=== PATIENT | male | born 1970 | race Hispanic/Latino ===

== ENCOUNTER 2017-09-08 21:52 | Emergency (ER) | payer SELFPAY ==
[2017-09-08 22:30] LABS: #Eosinphils 0.1 thou/uL (0.0-0.7); #Monocytes 0.6 thou/uL (0.11-0.59); #Neutrophils 6.5 thou/uL (1.40-6.50); %Eosinophils 1.2 % (0.0-10.0); %Lymphocytes 11.9 % (21.0-51.0); %Monocytes 7.4 % (0.0-10.0); %Neutrophils 79.6 % (42.0-75.0); Hemoglobin 14.1 g/dL (14.0-18.0); Mean Corpuscular HGB CONC 34.1 g/dL (32.0-36.0); Mean Corpuscular Volume 87.9 fL (78.0-98.0); Mean Platelet Volume 6.7 fL (7.4-10.4); Platelet Count 132 thou/uL (130-400); RBC Distribution Width 12.3 % (11.5-14.5); Red Blood Cell (RBC) Count 4.71 mill/uL (4.70-6.10); White Blood Cell (WBC) Count 8.1 thou/uL (4.8-10.8)
[2017-09-08 22:48] LABS: ALT (SGPT) 35 U/L (8-55); AST (SGOT) 57 U/L (5-34); Albumin 3.9 g/dL (3.5-5.0); Alkaline Phosphatase 94 U/L (40-150); Anion Gap 16 mmol/L (10-20); BUN (Urea Nitrogen) 11 mg/dL (8.9-20.6); Bilirubin, Total 0.8 mg/dL (0.2-1.2); Calc. Creatinine Clearance 0 mL/min (70-130); Calcium 8.9 mg/dL (7.8-10.44); Carbon Dioxide 21 mmol/L (22-29); Chloride 96 mmol/L (98-107); Estimated GFR-MDRD Greater than 90; Globulin 4.3 g/dL (2.4-3.5); Glucose 124 mg/dL (70-105); Potassium 3.7 mmol/L (3.5-5.1); Protein, Total 8.2 g/dL (6.0-8.3); Sodium 129 mmol/L (136-145)
--- NOTE | 2017-09-08 22:54 | RAD ---
RADIOGRAPH CHEST 1 VIEW: 09/08/17 HISTORY: 46-year-old male with acute chest pain for two days. FINDINGS: There are no air space densities, pulmonary edema, pneumothorax, or cardiomegaly. The lateral costop hrenic angles are sharp. IMPRESSION: No acute cardiopulmonary findings. david [] POS: JEET
[2017-09-08 23:14] LABS: CKMB 1.2 ng/mL (0-6.6); Troponin I Less than 0.010 ng/mL (< 0.028)
[2017-09-08] MEDS ORDERED: Ondansetron ODT 4 MG TAB ONE (23:22)
[2017-09-08 23:44] LABS: Acetaminophen Less than 6.0 mcg/mL (10.0-30.0); Alcohol 74 mg/dL (Less than 10); Salicylate Less than 8.0 mg/dL (15.0-30.0)
[2017-09-09] MEDS ORDERED: cloNIDine 0.1mg/24 Hour PATCH TD SCH (01:15)
[2017-09-09] MEDS ORDERED: Ketorolac Tromethamine 30 MG/ML VIAL ONE (01:54)
--- NOTE | 2017-09-10 13:31 | EKG ---
Test Reason : Blood Pressure : / mmHG Vent. Rate : 109 BPM Atrial Rate : 109 BPM P-R Int : 138 ms QRS Dur : 084 ms QT Int : 326 ms P-R-T Axes : 028 032 003 degrees QTc Int : 439 ms Sinus tachycardia Otherwise normal ECG Confirmed by KRISTEN STEPHENS ([id number]), acquisitions editor TUYET BEY ([id number]) on 09/10/2017 1:31:19 PM Referred By: Confirmed By:KRISTEN STEPHENS
== END 2017-09-09 02:05 | disposition home or self-care (01) ==
LOC: ERS 21:52
DX: F11.23 Opioid dependence with withdrawal (principal); F17.210 Nicotine dependence, cigarettes, uncomplicated
CPT/HCPCS: 71045; 80053; 80307; 82553; 84484; 85025; 93005; 96361; 96372; 96374; J1885; Q0162

== ENCOUNTER 2022-01-13 16:51 | Emergency (ER) | payer OTHER, SELFPAY ==
[~2022-01-13 16:51] MED LIST: Iopamidol-370 76% 500 ML 1 ML ONE
[2022-01-13 18:14] LABS: #Eosinphils 0.1 thou/uL (0.0-0.7); #Lymphocytes 1.2 thou/uL (1.20-3.40); #Monocytes 0.7 thou/uL (0.11-0.59); #Neutrophils 6.9 thou/uL (1.40-6.50); %Basophils 0.5 % (0.0-1.0); %Eosinophils 1.5 % (0.0-10.0); %Lymphocytes 13.5 % (21.0-51.0); %Monocytes 7.6 % (0.0-10.0); %Neutrophils 76.9 % (42.0-75.0); Mean Corpuscular HGB CONC 32.7 g/dL (32.0-36.0); Mean Corpuscular Hemoglobin 30.6 pg (27.0-31.0); Mean Corpuscular Volume 93.5 fl (78.0-98.0); Mean Platelet Volume 6.5 fL (7.4-10.4); Platelet Count 213 thou/uL (130-400); RBC Distribution Width 13.5 % (11.5-14.5); Red Blood Cell (RBC) Count 5.22 mill/uL (4.70-6.10); White Blood Cell (WBC) Count 8.9 thou/uL (4.8-10.8)
[2022-01-13 18:22] LABS: INR-International Normal Ratio 1.1; PTT 35.1 sec (22.9-36.1); Prothrombin Time 14.5 sec (12.0-14.7)
[2022-01-13 18:24] LABS: ALT (SGPT) 22 U/L (8-55); AST (SGOT) 34 U/L (5-34); Albumin 4.6 g/dL (3.5-5.0); Alkaline Phosphatase 94 U/L (40-110); Anion Gap 11 mmol/L (10-20); BUN (Urea Nitrogen) 5 mg/dL (8.4-25.7); Calc. Creatinine Clearance 0 mL/min (70-130); Calcium 9.6 mg/dL (7.8-10.44); Carbon Dioxide 30 mmol/L (22-29); Chloride 98 mmol/L (98-107); Estimated GFR 102; Globulin 3.6 g/dL (2.4-3.5); Glucose 88 mg/dL (70-105); Lipase 30 U/L (8-78); Potassium 4.2 mmol/L (3.5-5.1); Protein, Total 8.2 g/dL (6.0-8.3); Sodium 135 mmol/L (136-145)
[2022-01-13] MEDS ORDERED: Ketorolac Tromethamine 30 MG/ML VIAL ONE (18:55)
[2022-01-13 19:05] LABS: Bacteria/HPF None Seen HPF (None Seen); Bilirubin Negative (Negative); Blood, Urine 1+ (Negative); Clarity Clear (Clear); Glucose, Urine (Dipstick) Normal (Negative); Ketone, Urine Negative (Negative); Leukocyte 75 Leu/uL (Negative); Nitrite Negative (Negative); Protein, Urine (Dipstick) 10 mg/dL (Neg-Trace); Specific Gravity, Urine 1.018 (1.002-1.036); Squamous Epithelial 0-3 HPF (0-3); Urobilinogen 6 mg/dL (Less than 2)
[2022-01-13 19:06] LABS: Sperm/HPF Rare HPF (None Seen)
== END 2022-01-13 21:41 | disposition home or self-care (01) ==
LOC: ERS 16:51
DX: N39.0 Urinary tract infection, site not specified (principal); Z87.891 Personal history of nicotine dependence
CPT/HCPCS: 36415; 74177; 80053; 81003; 81015; 83690; 84484; 85025; 85610; 85730; 87086; 93005; 96372; J1885; Q9967

== ENCOUNTER 2022-04-17 14:24 | Emergency (ER) | payer SELFPAY ==
[2022-04-17] MEDS ORDERED: Ibuprofen 200 MG TAB ONE (14:53)
[2022-04-17] MEDS ORDERED: HYDROcodone/Acetaminophen 5/325 mg Tablet ONE (14:53)
== END 2022-04-17 15:52 | disposition home or self-care (01) ==
LOC: ERS 14:24
DX: L03.90 Cellulitis, unspecified (principal)
CPT/HCPCS: 99283

== ENCOUNTER 2023-02-14 13:22 | Inpatient (IN) | payer SELFPAY ==
[~2023-02-14 13:22] MED LIST changes: -Iopamidol-370 76% 500 ML 1 ML ONE; +Iopamidol-370 76% 500 ML MDV (1 ML CHARGE) ONE
[2023-02-14 14:36] LABS: #Eosinphils 0.1 thou/uL (0.0-0.7); #Monocytes 0.6 thou/uL (0.11-0.59); %Basophils 0.5 % (0.0-1.0); %Eosinophils 2.2 % (0.0-10.0); %Lymphocytes 14.4 % (21.0-51.0); %Monocytes 10.6 % (0.0-10.0); %Neutrophils 71.9 % (42.0-75.0); Hematocrit 43.8 % (42.0-52.0); Hemoglobin 15.3 g/dL (14.0-18.0); Mean Corpuscular HGB CONC 34.9 g/dL (32.0-36.0); Mean Corpuscular Hemoglobin 31.4 pg (27.0-31.0); Mean Corpuscular Volume 89.8 fl (78.0-98.0); Mean Platelet Volume 9.5 fL (7.4-10.4); Platelet Count 163 10x3/uL (130-400); RBC Distribution Width 12.3 % (11.5-14.5); Red Blood Cell (RBC) Count 4.88 mill/uL (4.70-6.10); White Blood Cell (WBC) Count 5.6 10x3/uL (4.8-10.8)
[2023-02-14 14:58] LABS: ALT (SGPT) 20 U/L (8-55); AST (SGOT) 40 U/L (5-34); Albumin 4.5 g/dL (3.5-5.0); Alkaline Phosphatase 78 U/L (40-110); Anion Gap 14 mmol/L (10-20); BUN (Urea Nitrogen) 4 mg/dL (8.4-25.7); Bilirubin, Total 1.1 mg/dL (0.2-1.2); Calc. Creatinine Clearance 0 mL/min (70-130); Calcium 9.4 mg/dL (7.8-10.44); Carbon Dioxide 25 mmol/L (22-29); Chloride 94 mmol/L (98-107); Estimated GFR 107; Globulin 3.4 g/dL (2.4-3.5); Glucose 129 mg/dL (70-105); Lipase 22 U/L (8-78); Potassium 3.2 mmol/L (3.5-5.1); Protein, Total 7.9 g/dL (6.0-8.3); Sodium 130 mmol/L (136-145)
[2023-02-14 15:50] LABS: Bacteria/HPF None Seen HPF (None Seen); Bilirubin Negative (Negative); Blood, Urine 1+ (Negative); CAUTI Indications for Culture Pelvic or flank pain; Clarity Clear (Clear); Glucose, Urine (Dipstick) Normal (Negative); Ketone, Urine Negative (Negative); Leukocyte Negative Leu/uL (Negative); Nitrite Negative (Negative); Protein, Urine (Dipstick) Negative (Neg-Trace); Specific Gravity, Urine 1.012 (1.002-1.036); Squamous Epithelial 0-3 HPF (0-3); Urobilinogen 3 mg/dL (Less than 2); WBC/HPF 0-3 HPF (0-3); pH, Urine 7.5 (5.0-9.0)
[2023-02-14 15:53] LABS: Urine Culture Reflex No No
[2023-02-14] MEDS ORDERED: Cefepime 2 GM VIAL ONE (16:36)
[2023-02-14] MEDS ORDERED: Morphine 4 MG/ML VIAL ONE ×2 (16:36→18:23)
[2023-02-14] MEDS ORDERED: Sodium Chloride 0.9% 100 ML ONE (16:36)
[2023-02-14] MEDS ORDERED: Vancomycin 1 GM/200 ML (FROZEN) BAG ONE (18:04)
[2023-02-14] MEDS ORDERED: fentaNYL 50 mcg/mL 1 mL Vial ONE (22:28)
[2023-02-14] MEDS ORDERED: Electrolyte Replacement Protocol 1 EACH FS PRN (23:45)
[2023-02-14] MEDS ORDERED: Ondansetron PF 4 MG/2 ML Vial IVP PRN (23:48)
[2023-02-14] MEDS ORDERED: Ondansetron ODT 4 MG TAB PO PRN ×2 (23:48→23:51)
[2023-02-14] MEDS ORDERED: Acetaminophen 325 MG TAB PO PRN (23:48)
[2023-02-14] MEDS ORDERED: Lorazepam 2 MG/ML VIAL IM PRN (23:51)
[2023-02-14] MEDS ORDERED: Lorazepam 1 MG TAB PO PRN (23:51)
[2023-02-15] MEDS ORDERED: LORazepam 2 MG/ML SYR.(CARPUJECT) ONE (00:30)
[2023-02-15 00:32] LABS: Magnesium 1.7 mg/dL (1.6-2.6); Phosphorus 2.8 mg/dL (2.3-4.7)
[2023-02-15] MEDS ORDERED: Magnesium 2 GM/50 ML(in water) 2 GM in Premix 1 BAG IVPB SCH (01:00)
[2023-02-15 01:23] LABS: Amphetamine Detected (NotDetected); Barbiturates Screen Not Detected (NotDetected); Benzodiazepine Screen Not Detected (NotDetected); Cocaine Metabolite Screen Detected (NotDetected); Methadone Not Detected (NotDetected); Methamphetamine Detected (NotDetected); Opiate Screen Not Detected (NotDetected); Oxycodone Screen Not Detected (NotDetected); Phencyclidine (PCP) Not Detected (NotDetected); THC/Cannabinoid Screen Not Detected (NotDetected); Tricyclic Screen Not Detected (NotDetected)
[2023-02-15] MEDS ORDERED: Dextrose 5%-Lactated Ringers 1,000 ML IV SCH (01:45)
[2023-02-15] MEDS ORDERED: Dexamethasone 10 MG/ML VIAL ONE ×2 (03:46→11:37)
[2023-02-15] MEDS ORDERED: Thiamine HCl 200 MG/2 ML VIAL ONE (03:47)
[2023-02-15 03:49] LABS: #Eosinphils 0.1 thou/uL (0.0-0.7); #Monocytes 0.7 thou/uL (0.11-0.59); #Neutrophils 4.6 thou/uL (1.40-6.50); %Basophils 0.4 % (0.0-1.0); %Eosinophils 1.9 % (0.0-10.0); %Lymphocytes 18.4 % (21.0-51.0); %Monocytes 10.5 % (0.0-10.0); %Neutrophils 68.5 % (42.0-75.0); Hematocrit 43.9 % (42.0-52.0); Hemoglobin 15.3 g/dL (14.0-18.0); Mean Corpuscular HGB CONC 34.9 g/dL (32.0-36.0); Mean Corpuscular Hemoglobin 31.3 pg (27.0-31.0); Mean Corpuscular Volume 89.8 fl (78.0-98.0); Mean Platelet Volume 9.6 fL (7.4-10.4); Platelet Count 148 10x3/uL (130-400); RBC Distribution Width 12.4 % (11.5-14.5); Red Blood Cell (RBC) Count 4.89 mill/uL (4.70-6.10); White Blood Cell (WBC) Count 6.8 10x3/uL (4.8-10.8)
[2023-02-15 04:06] LABS: ALT (SGPT) 19 U/L (8-55); AST (SGOT) 36 U/L (5-34); Alkaline Phosphatase 74 U/L (40-110); Anion Gap 14 mmol/L (10-20); BUN (Urea Nitrogen) 6 mg/dL (8.4-25.7); Bilirubin, Total 1.4 mg/dL (0.2-1.2); Calc. Creatinine Clearance 0 mL/min (70-130); Calcium 9.5 mg/dL (7.8-10.44); Carbon Dioxide 24 mmol/L (22-29); Chloride 103 mmol/L (98-107); Estimated GFR 109; Globulin 3.4 g/dL (2.4-3.5); Glucose 87 mg/dL (70-105); Potassium 3.8 mmol/L (3.5-5.1); Protein, Total 7.4 g/dL (6.0-8.3); Sodium 137 mmol/L (136-145)
[2023-02-15] MEDS: Dexamethasone 4 mg/ml Vial SLOW IVP SCH ×3 (04:08→15:18)
[2023-02-15] MEDS: Thiamine HCl 200 MG/2 ML VIAL SLOW IVP SCH ×2 (04:08→22:41)
[2023-02-15] MEDS ORDERED: Magnesium 2 GM/50 ML BAG (IN WATER) ONE (04:47)
[2023-02-15 05:30] VITALS: BMI 22.8
[2023-02-15] MEDS ORDERED: Vancomycin (BATCH) 1.25 GM in Premix 1 BAG IVPB SCH (06:00)
[2023-02-15] MEDS ORDERED: Cefepime 1 GM in Sodium Chloride 0.9% 100 ML IVPB SCH (09:00)
[2023-02-15] MEDS ORDERED: Vancomycin (BATCH) 1.5 GM in Premix 1 BAG IVPB SCH (09:00)
[2023-02-15] MEDS ORDERED: Magnevist 469MG/ML 20 ML VIAL ONE ×3 (09:54)
[2023-02-15] MEDS ORDERED: Multivit, Therapeutic 1 TAB ONE (11:37)
[2023-02-15] MEDS ORDERED: Cefepime 1 GM VIAL ONE (11:37)
[2023-02-15] MEDS ORDERED: Folic Acid 1 MG TAB ONE (11:37)
[2023-02-15] MEDS ORDERED: Sodium Chloride 0.9% 100 ML ONE (11:38)
[2023-02-15] MEDS ORDERED: Famotidine/PF 20 mg/2ml Vial ONE (11:38)
[2023-02-15] MEDS: Multivit, Therapeutic 1 TAB PO SCH (11:42)
[2023-02-15] MEDS: Famotidine/PF 20 mg/2ml Vial SLOW IVP SCH ×2 (11:42→21:20)
[2023-02-15] MEDS: Folic Acid 1 MG TAB PO SCH (11:42)
[2023-02-15] MEDS ORDERED: traMADol HCl 50 MG TAB ONE (11:45)
[2023-02-15] MEDS: traMADol HCl 50 MG TAB PO PRN ×2 (11:46→17:47)
[2023-02-15] MEDS: Famotidine 20 MG TAB PO SCH ×2 (11:55→21:20)
[2023-02-15] MEDS: Tamsulosin HCl 0.4 MG CAP PO SCH (12:39)
[2023-02-15] MEDS: Vancomycin 1 GM in Premix 1 BAG IVPB SCH ×2 (15:20→22:41)
[2023-02-15] MEDS ORDERED: Dexamethasone 4 mg/ml Vial SLOW IVP SCH (18:00)
[2023-02-15] MEDS ORDERED: Cefepime 2 GM in Sodium Chloride 0.9% 100 ML IVPB SCH (21:00)
[2023-02-15] MEDS ORDERED: Lorazepam 1 MG TAB PO PRN (23:51)
[2023-02-16] MEDS: traMADol HCl 50 MG TAB PO PRN ×3 (03:49→21:29)
[2023-02-16 05:26] LABS: Vancomycin, Trough 17.1 ug/mL
[2023-02-16] MEDS: Vancomycin 1 GM in Premix 1 BAG IVPB SCH ×3 (05:44→21:32)
[2023-02-16] MEDS: Tamsulosin HCl 0.4 MG CAP PO SCH (08:33)
[2023-02-16] MEDS: Multivit, Therapeutic 1 TAB PO SCH (08:33)
[2023-02-16] MEDS: Famotidine/PF 20 mg/2ml Vial SLOW IVP SCH ×2 (08:33→21:33)
[2023-02-16] MEDS: Famotidine 20 MG TAB PO SCH ×2 (08:33→21:29)
[2023-02-16] MEDS: Folic Acid 1 MG TAB PO SCH (08:33)
[2023-02-16] MEDS: Lorazepam 1 MG TAB PO SCH ×2 (12:32→17:52)
[2023-02-16] MEDS: Thiamine HCl 200 MG/2 ML VIAL SLOW IVP SCH (23:48)
[2023-02-16] MEDS ORDERED: Lorazepam 1 MG TAB PO PRN (23:51)
[2023-02-17 05:31] LABS: #Monocytes 0.5 thou/uL (0.11-0.59); %Basophils 0.1 % (0.0-1.0); %Eosinophils 0.3 % (0.0-10.0); %Lymphocytes 17.5 % (21.0-51.0); %Monocytes 7.4 % (0.0-10.0); %Neutrophils 74.4 % (42.0-75.0); Hematocrit 41.1 % (42.0-52.0); Hemoglobin 14.3 g/dL (14.0-18.0); Mean Corpuscular HGB CONC 34.8 g/dL (32.0-36.0); Mean Corpuscular Hemoglobin 31.6 pg (27.0-31.0); Mean Corpuscular Volume 90.9 fl (78.0-98.0); Mean Platelet Volume 9.7 fL (7.4-10.4); Platelet Count 134 10x3/uL (130-400); RBC Distribution Width 12.2 % (11.5-14.5); Red Blood Cell (RBC) Count 4.52 mill/uL (4.70-6.10); White Blood Cell (WBC) Count 6.8 10x3/uL (4.8-10.8)
[2023-02-17] MEDS: traMADol HCl 50 MG TAB PO PRN ×2 (05:45→16:03)
[2023-02-17 06:01] LABS: Vancomycin, Trough 21.3 ug/mL
[2023-02-17] MEDS: Vancomycin 1 GM in Premix 1 BAG IVPB SCH (06:07)
[2023-02-17 07:05] LABS: Anion Gap 14 mmol/L (10-20); BUN (Urea Nitrogen) 18 mg/dL (8.4-25.7); Calc. Creatinine Clearance 94 mL/min (70-130); Calcium 9.2 mg/dL (7.8-10.44); Carbon Dioxide 25 mmol/L (22-29); Chloride 100 mmol/L (98-107); Estimated GFR 107; Glucose 90 mg/dL (70-105); Potassium 3.9 mmol/L (3.5-5.1); Sodium 135 mmol/L (136-145)
[2023-02-17] MEDS: Famotidine 20 MG TAB PO SCH (09:31)
[2023-02-17] MEDS: Folic Acid 1 MG TAB PO SCH (09:31)
[2023-02-17] MEDS: Multivit, Therapeutic 1 TAB PO SCH (09:31)
[2023-02-17] MEDS: Tamsulosin HCl 0.4 MG CAP PO SCH (09:31)
[2023-02-17] MEDS: Famotidine/PF 20 mg/2ml Vial SLOW IVP SCH (09:32)
[2023-02-17] MEDS ORDERED: Vancomycin HCl 750 MG in Sodium Chloride 0.9% 250 ML 250 ML IVPB SCH (14:00)
[2023-02-17 16:16] VITALS: BP 114/73; TEMP 96.4
[2023-02-17] MEDS ORDERED: Thiamine 100 MG TAB PO SCH (23:45)
[2023-02-17] MEDS ORDERED: Lorazepam 0.5 MG TAB PO PRN (23:51)
== END 2023-02-17 16:55 | disposition home or self-care (01) | DRG 552 ==
LOC: ERS 13:22 → ERHOLD 02-15 00:03 → 2SE 02-15 14:59
PROVIDERS: ADMIT Student in an Organized Health Care Education/Training Program; ATTEND Family Medicine
DX: M47.816 Spondylosis without myelopathy or radiculopathy, lumbar region (principal); E87.1 Hypo-osmolality and hyponatremia; R20.2 Paresthesia of skin; M47.817 Spondylosis without myelopathy or radiculopathy, lumbosacral region; M47.812 Spondylosis without myelopathy or radiculopathy, cervical region; R33.9 Retention of urine, unspecified; F41.9 Anxiety disorder, unspecified; F15.10 Other stimulant abuse, uncomplicated; Z90.49 Acquired absence of other specified parts of digestive tract; Z98.890 Other specified postprocedural states; E87.6 Hypokalemia; Z79.899 Other long term (current) drug therapy
CPT/HCPCS: 36415; 72156; 72157; 72158; 74177; 80048; 80053; 80202; 80306; 81001; 83605; 83690; 83735; 84100; 85025; 86140; 87040; 93005; A9579; J0692; J1100; J2060; J2270; J3010; J3370; J3370-JW; J3411; J3475; J3490; Q9967; S0028

== ENCOUNTER 2023-02-23 16:28 | Emergency (ER) | payer SELFPAY, OTHER ==
[2023-02-23] MEDS ORDERED: Ondansetron PF 4 MG/2 ML Vial ONE (18:32)
[2023-02-23] MEDS ORDERED: Morphine 4 MG/ML VIAL ONE (18:32)
[2023-02-23] MEDS ORDERED: Lidocaine 1% w/Epinephrine 1:100K 20 ML VIAL ONE (20:09)
== END 2023-02-23 20:47 | disposition home or self-care (01) ==
LOC: ERS 16:28
DX: S01.81XA Laceration without foreign body of other part of head, initial encounter (principal); S43.402A Unspecified sprain of left shoulder joint, initial encounter; S43.401A Unspecified sprain of right shoulder joint, initial encounter; S09.90XA Unspecified injury of head, initial encounter; V19.9XXA Pedal cyclist (driver) (passenger) injured in unspecified traffic accident, initial encounter; Y92.410 Unspecified street and highway as the place of occurrence of the external cause
CPT/HCPCS: 12011; 70450; 70486; 71045; 72125; 93005; 96374; 96375; J2270; J2405

== ENCOUNTER 2023-03-11 12:09 | Emergency (ER) | payer SELFPAY | END 2023-03-11 16:19 | disposition home or self-care (01) | LOC: ERS 12:09 | DX: S01.112D Laceration without foreign body of left eyelid and periocular area, subsequent encounter (principal); W18.30XD Fall on same level, unspecified, subsequent encounter ==